=== PATIENT | male | born 1940 | race Caucasian/White ===

== ENCOUNTER 2017-10-25 10:32 | Emergency (ER) | payer OTHER ==
[2017-10-25 10:54] LABS: HEMATOCRIT 40.1 % (42.0-54.0); HEMOGLOBIN 13.6 g/dL (13.5-17.5); LYMPHOCYTES 25.5 % (15-50); MCH 32.2 pg (26.0-34.0); MCHC 33.9 g/dL (31.0-37.0); MCV 94.8 fL (80.0-100.0); MEAN PLATELET VOLUME 10.2 fL (7.4-10.4); NEUTROPHILS 61.2 % (40-80); PLATELET COUNT 68 10x3/uL (130-400); RBC 4.23 10x6/uL (4.20-6.10); RDW 19.8 % (11.5-14.5); WBC 4.1 10x3/uL (4.8-10.8)
[2017-10-25 11:16] LABS: INR 3.2 (0.85-1.17); PROTIME 31.4 SECONDS (11.6-15.0)
[2017-10-25 11:25] LABS: APTT 52.6 SECONDS (22.8-39.4)
[2017-10-25 11:26] LABS: PLATELET ESTIMATE DECREASED
== END 2017-10-25 16:47 | disposition short-term general hospital (02) ==
LOC: D.ER 10:32
PROVIDERS: Emergency Medicine
DX: R04.0 Epistaxis (principal); Z79.01 Long term (current) use of anticoagulants; L98.0 Pyogenic granuloma; I48.91 Unspecified atrial fibrillation; I10 Essential (primary) hypertension; I50.9 Heart failure, unspecified; N40.0 Benign prostatic hyperplasia without lower urinary tract symptoms; K21.9 Gastro-esophageal reflux disease without esophagitis

== ENCOUNTER 2017-11-14 06:58 | Emergency (ER) | payer OTHER ==
[~2017-11-14] VITALS: Ht 170.2 cm; Wt 117.9 kg
[2017-11-14 07:23] LABS: BASOPHILS 1.5 % (0-2); EOSINOPHILS 3.3 % (0-7); HEMATOCRIT 32.3 % (42.0-54.0); HEMOGLOBIN 10.3 g/dL (13.5-17.5); IMMATURE GRANULOCYTES 0.5 % (0-5); LYMPHOCYTES 27.6 % (15-50); MCH 31.9 pg (26.0-34.0); MCHC 31.9 g/dL (31.0-37.0); MEAN PLATELET VOLUME 10.7 fL (7.4-10.4); MONOCYTES 16.5 % (2-11); NEUTROPHILS 50.6 % (40-80); RBC 3.23 10x6/uL (4.20-6.10)
[2017-11-14 07:27] LABS: PLATELET COUNT 102 10x3/uL (130-400)
[2017-11-14 07:36] LABS: INR 2.22 (0.85-1.17)
[2017-11-14 07:45] LABS: ALBUMIN 2.8 g/dL (3.4-5.0); ALKALINE PHOSPHATASE 71 U/L (46-116); ALT (SGPT) 13 U/L (10-68); CALC OSMOLALITY 279 mosm/kg (275-300); CALCIUM 8.7 mg/dL (8.5-10.1); CARBON DIOXIDE 29.5 mmol/L (21.0-32.0); CHLORIDE - SERUM 101 mmol/L (98-107); GLUCOSE 94 mg/dL (74-106); POTASSIUM - SERUM 3.6 mmol/L (3.5-5.1); PROTEIN - SERUM 5.4 g/dL (6.4-8.2); SODIUM 140 mmol/L (136-145); UREA NITROGEN 14 mg/dL (7-18); eGFR NON AFRICAN AMERICAN 77 mL/min (90-120)
[2017-11-14 08:01] LABS: CHOL - HDL RATIO 2.7 ratio (2.3-4.9); CHOLESTEROL, TOTAL 74 mg/dL (0-200); CKMB 1.2 U/L (0.0-3.6); CREATINE KINASE 15 UL (21-232); HDL CHOLESTEROL 27 mg/dL (32-96); LDL CHOLESTEROL 39 mg/dL (0-100); LDL-HDL RATIO 1.4 ratio (1.5-3.5); TRIGLYCERIDE 43 mg/dL (30-200)
[2017-11-14 08:08] LABS: TROPONIN-I 0.102 ng/mL (0.000-0.060)
== END 2017-11-14 11:14 | disposition short-term general hospital (02) ==
LOC: D.ER 06:58
PROVIDERS: Emergency Medicine
DX: I20.0 Unstable angina (principal); R07.9 Chest pain, unspecified; I10 Essential (primary) hypertension; K21.9 Gastro-esophageal reflux disease without esophagitis; I48.91 Unspecified atrial fibrillation; I45.10 Unspecified right bundle-branch block

== ENCOUNTER 2017-11-27 14:40 | Emergency (ER) | payer OTHER ==
[2017-11-27 15:12] LABS: BASOPHILS 1.7 % (0-2); EOSINOPHILS 2.1 % (0-7); HEMATOCRIT 33.4 % (42.0-54.0); HEMOGLOBIN 10.3 g/dL (13.5-17.5); IMMATURE GRANULOCYTES 0.2 % (0-5); LYMPHOCYTES 24.1 % (15-50); MCH 30.5 pg (26.0-34.0); MCHC 30.8 g/dL (31.0-37.0); MCV 98.8 fL (80.0-100.0); MEAN PLATELET VOLUME 10.9 fL (7.4-10.4); MONOCYTES 17.2 % (2-11); NEUTROPHILS 54.7 % (40-80); PLATELET COUNT 136 10x3/uL (130-400); RBC 3.38 10x6/uL (4.20-6.10); RDW 18.7 % (11.5-14.5); WBC 4.2 10x3/uL (4.8-10.8)
[2017-11-27 15:27] LABS: ALBUMIN 3.1 g/dL (3.4-5.0); ALKALINE PHOSPHATASE 71 U/L (46-116); ALT (SGPT) 19 U/L (10-68); BILIRUBIN - TOTAL 1.09 mg/dL (0.2-1.3); CALC OSMOLALITY 274 mosm/kg (275-300); CARBON DIOXIDE 30.6 mmol/L (21.0-32.0); CHLORIDE - SERUM 102 mmol/L (98-107); CREATININE - SERUM 1.1 mg/dL (0.6-1.3); GLUCOSE 109 mg/dL (74-106); POTASSIUM - SERUM 3.9 mmol/L (3.5-5.1); PROTEIN - SERUM 6.5 g/dL (6.4-8.2); SODIUM 137 mmol/L (136-145); UREA NITROGEN 13 mg/dL (7-18); eGFR NON AFRICAN AMERICAN 69 mL/min (90-120)
[2017-11-27 15:33] LABS: INR 2.28 (0.85-1.17); PROTIME 24.5 SECONDS (11.6-15.0)
[2017-11-27 15:41] LABS: CHOL - HDL RATIO 2.2 ratio (2.3-4.9); CHOLESTEROL, TOTAL 90 mg/dL (0-200); CKMB 1.2 U/L (0.0-3.6); CREATINE KINASE 18 UL (21-232); HDL CHOLESTEROL 41 mg/dL (32-96); LDL CHOLESTEROL 42 mg/dL (0-100); TRIGLYCERIDE 39 mg/dL (30-200)
[2017-11-27 15:43] LABS: TROPONIN-I 0.109 ng/mL (0.000-0.060)
[2017-11-27 16:13] LABS: APPEARANCE CLEAR (CLEAR); BILIRUBIN NEGATIVE (NEGATIVE); COLOR YELLOW (YELLOW); GLUCOSE NEGATIVE (NEGATIVE); KETONE NEGATIVE (NEGATIVE); NITRITE NEGATIVE (NEGATIVE); PH 6.5 (5.0-6.0); PROTEIN NEGATIVE (NEGATIVE); UROBILINOGEN NORMAL (NORMAL)
[2017-11-27 16:18] LABS: BACTERIA MODERATE /hpf (NONE SEEN); WHITE CELLS - URINE OCC /hpf (0-5)
== END 2017-11-27 19:42 | disposition short-term general hospital (02) ==
LOC: D.ER 14:40
PROVIDERS: Family Medicine; Nurse Practitioner Family
DX: R07.9 Chest pain, unspecified (principal); I50.9 Heart failure, unspecified; R79.89 Other specified abnormal findings of blood chemistry; I48.91 Unspecified atrial fibrillation; K21.9 Gastro-esophageal reflux disease without esophagitis; I45.10 Unspecified right bundle-branch block

== ENCOUNTER 2018-01-03 05:19 | Emergency (ER) | payer OTHER ==
[2018-01-03 05:45] LABS: BASOPHILS 0.4 % (0-2); EOSINOPHILS 1.8 % (0-7); HEMATOCRIT 34.2 % (42.0-54.0); HEMOGLOBIN 10.8 g/dL (13.5-17.5); IMMATURE GRANULOCYTES 0.4 % (0-5); LYMPHOCYTES 11.3 % (15-50); MCH 29.8 pg (26.0-34.0); MCHC 31.6 g/dL (31.0-37.0); MCV 94.2 fL (80.0-100.0); MEAN PLATELET VOLUME 11.1 fL (7.4-10.4); MONOCYTES 1.2 % (2-11); NEUTROPHILS 84.9 % (40-80); PLATELET COUNT 119 10x3/uL (130-400); RBC 3.63 10x6/uL (4.20-6.10); RDW 17.6 % (11.5-14.5); WBC 5.7 10x3/uL (4.8-10.8)
[2018-01-03 05:53] LABS: INR 3.65 (0.85-1.17); PROTIME 35.5 SECONDS (11.6-15.0)
[2018-01-03 05:58] LABS: ALBUMIN 3.5 g/dL (3.4-5.0); ANION GAP 12.5 mmol/L (8-16); BILIRUBIN - TOTAL 1.91 mg/dL (0.2-1.3); CALCIUM 9.1 mg/dL (8.5-10.1); CARBON DIOXIDE 29.9 mmol/L (21.0-32.0); CREATININE - SERUM 1.1 mg/dL (0.6-1.3); POTASSIUM - SERUM 3.4 mmol/L (3.5-5.1); PROTEIN - SERUM 7.5 g/dL (6.4-8.2)
[2018-01-03 06:20] LABS: TROPONIN-I 0.096 ng/mL (0.000-0.060)
== END 2018-01-03 10:21 | disposition short-term general hospital (02) ==
LOC: D.ER 05:19
PROVIDERS: Family Medicine
DX: I48.2 Chronic atrial fibrillation (principal); K85.90 Acute pancreatitis without necrosis or infection, unspecified; R79.89 Other specified abnormal findings of blood chemistry; K21.9 Gastro-esophageal reflux disease without esophagitis; I10 Essential (primary) hypertension; I45.10 Unspecified right bundle-branch block; Z79.01 Long term (current) use of anticoagulants

== ENCOUNTER 2018-03-24 17:54 | Emergency (ER) | payer OTHER ==
[~2018-03-24] VITALS: Ht 170.2 cm; Wt 109.1 kg
[2018-03-24 17:56] VITALS: Ht 170.2 cm; Wt 109.1 kg
[2018-03-24] MEDS ORDERED: ARTIFICIAL TEAR15 ML EACH EYE (18:00)
[2018-03-24] MEDS ORDERED: LIPITOR80 MG PO (18:00)
[2018-03-24] MEDS ORDERED: BAYER CHEWABLE81 MG PO (18:00)
[2018-03-24] MEDS ORDERED: BUMEX2 MG PO (18:01)
[2018-03-24] MEDS ORDERED: BACITRACIN3.5 GM EACH EYE (18:01)
[2018-03-24] MEDS ORDERED: CALCIUM 500 + D1 TAB PO (18:02)
[2018-03-24] MEDS ORDERED: STOOL SOFTENER240 MG PO (18:02)
[2018-03-24] MEDS ORDERED: PROPECIA1 MG PO (18:02)
[2018-03-24] MEDS ORDERED: LACTINEX C1 TAB.CHEW PO (18:02)
[2018-03-24] MEDS ORDERED: FOLATE0.4 MG PO (18:03)
[2018-03-24] MEDS ORDERED: LISINOPRIL2.5 MG PO (18:03)
[2018-03-24] MEDS ORDERED: ISOSORBIDE MONO60 M1 PO (18:03)
[2018-03-24] MEDS ORDERED: TOPROL XL200 MG PO (18:04)
[2018-03-24] MEDS ORDERED: K-DUR20 MEQ PO (18:04)
[2018-03-24] MEDS ORDERED: PROTONIX40 MG PO (18:04)
[2018-03-24] MEDS ORDERED: FLOMAX0.4 MG PO (18:05)
[2018-03-24] MEDS ORDERED: VITAMIN B-121000 MCG PO (18:05)
[2018-03-24] MEDS ORDERED: ALDACTONE25 MG PO (18:05)
[2018-03-24] MEDS ORDERED: VITAMIN C WIT1000 MG PO (18:05)
[2018-03-24] MEDS ORDERED: TRAMADOL HCL E100 M1 PO (18:06)
[2018-03-24 18:30] LABS: BASOPHILS 1.5 % (0-2); EOSINOPHILS 2.6 % (0-7); HEMATOCRIT 21.8 % (42.0-54.0); LYMPHOCYTES 22.1 % (15-50); MCH 25.2 pg (26.0-34.0); MCHC 30.3 g/dL (31.0-37.0); MCV 83.2 fL (80.0-100.0); MEAN PLATELET VOLUME 10.2 fL (7.4-10.4); MONOCYTES 14.6 % (2-11); NEUTROPHILS 59.2 % (40-80); PLATELET COUNT 138 10x3/uL (130-400); RBC 2.62 10x6/uL (4.20-6.10); RDW 18.9 % (11.5-14.5); WBC 3.9 10x3/uL (4.8-10.8)
[2018-03-24 18:36] LABS: HEMOGLOBIN 6.6 g/dL (13.5-17.5)
[2018-03-24 18:41] LABS: INR 4.08 (0.85-1.17); PROTIME 38.7 SECONDS (11.6-15.0)
[2018-03-24 18:48] LABS: ALBUMIN 3.1 g/dL (3.4-5.0); ANION GAP 11.9 mmol/L (8-16); BILIRUBIN - TOTAL 1.04 mg/dL (0.2-1.3); CALCIUM 9.3 mg/dL (8.5-10.1); CARBON DIOXIDE 29.5 mmol/L (21.0-32.0); CREATININE - SERUM 1.6 mg/dL (0.6-1.3); POTASSIUM - SERUM 4.4 mmol/L (3.5-5.1); PROTEIN - SERUM 6.5 g/dL (6.4-8.2)
[2018-03-24 19:20] LABS: APTT 58.3 SECONDS (22.8-39.4)
[2018-03-24 22:30] VITALS: BP 90/55
== END 2018-03-25 00:53 | disposition short-term general hospital (02) ==
LOC: D.ER 17:54
PROVIDERS: Family Medicine
DX: I48.91 Unspecified atrial fibrillation (principal); D64.9 Anemia, unspecified; R53.1 Weakness; E87.1 Hypo-osmolality and hyponatremia; I45.10 Unspecified right bundle-branch block

== ENCOUNTER 2018-04-19 04:43 | Emergency (ER) | payer OTHER ==
[~2018-04-19] VITALS: Ht 170.2 cm; Wt 68.6 kg
[~2018-04-19 04:43] MED LIST: ALDACTONE25 MG PO; ARTIFICIAL TEAR15 ML EACH EYE; BACITRACIN3.5 GM EACH EYE; BAYER CHEWABLE81 MG PO; BUMEX2 MG PO; CALCIUM 500 + D1 TAB PO; FLOMAX0.4 MG PO; FOLATE0.4 MG PO; ISOSORBIDE MONO60 M1 PO; K-DUR20 MEQ PO; LACTINEX C1 TAB.CHEW PO; LIPITOR80 MG PO; LISINOPRIL2.5 MG PO; PROPECIA1 MG PO; PROTONIX40 MG PO; STOOL SOFTENER240 MG PO; TOPROL XL200 MG PO; TRAMADOL HCL E100 M1 PO; VITAMIN B-121000 MCG PO; VITAMIN C WIT1000 MG PO
[2018-04-19 04:46] VITALS: Ht 170.2 cm; Wt 68.6 kg
[2018-04-19 05:13] LABS: BASOPHILS 1.1 % (0-2); EOSINOPHILS 1.6 % (0-7); HEMATOCRIT 28.1 % (42.0-54.0); HEMOGLOBIN 8.5 g/dL (13.5-17.5); LYMPHOCYTES 20.3 % (15-50); MCH 26.6 pg (26.0-34.0); MCHC 30.2 g/dL (31.0-37.0); MCV 87.8 fL (80.0-100.0); MEAN PLATELET VOLUME 12.3 fL (7.4-10.4); MONOCYTES 9.5 % (2-11); NEUTROPHILS 67.5 % (40-80); PLATELET COUNT 130 10x3/uL (130-400); RDW 22.5 % (11.5-14.5); WBC 4.4 10x3/uL (4.8-10.8)
[2018-04-19 05:24] LABS: INR 3.51 (0.85-1.17); PROTIME 34.4 SECONDS (11.6-15.0)
[2018-04-19 05:25] LABS: D-DIMER-QUANTITATIVE 1.27 ug/mLFEU (0.20-0.54)
[2018-04-19 05:27] LABS: ALBUMIN 2.9 g/dL (3.4-5.0); ALKALINE PHOSPHATASE 72 U/L (46-116); ALT (SGPT) 15 U/L (10-68); BILIRUBIN - TOTAL 1.21 mg/dL (0.2-1.3); CALC OSMOLALITY 273 mosm/kg (275-300); CALCIUM 9.1 mg/dL (8.5-10.1); CHLORIDE - SERUM 99 mmol/L (98-107); CREATININE - SERUM 1.5 mg/dL (0.6-1.3); GLUCOSE 137 mg/dL (74-106); POTASSIUM - SERUM 3.8 mmol/L (3.5-5.1); PROTEIN - SERUM 6.1 g/dL (6.4-8.2); SODIUM 134 mmol/L (136-145); UREA NITROGEN 23 mg/dL (7-18); eGFR NON AFRICAN AMERICAN 48 mL/min (90-120)
[2018-04-19 05:38] LABS: APPEARANCE CLEAR (CLEAR); BILIRUBIN NEGATIVE (NEGATIVE); COLOR YELLOW (YELLOW); GLUCOSE NEGATIVE (NEGATIVE); KETONE NEGATIVE (NEGATIVE); NITRITE NEGATIVE (NEGATIVE); PROTEIN 2+ mg/dL (NEGATIVE); SPECIFIC GRAVITY 1.015 (1.005-1.020); UROBILINOGEN NORMAL (NORMAL)
[2018-04-19 05:39] LABS: BACTERIA FEW /hpf (NONE SEEN); EPITHELIAL CELLS 0-5 /hpf (0-5); RED CELLS - URINE 0-5 /hpf (0-5); WHITE CELLS - URINE 0-5 /hpf (0-5)
[2018-04-19 05:43] LABS: CKMB 1.2 U/L (0.0-3.6); CREATINE KINASE 24 UL (21-232); MAGNESIUM - SERUM 1.8 mg/dL (1.8-2.4); PRO BNP 1167 pg/mL (0-450)
[2018-04-19] MEDS ORDERED: COUMADIN2.5 MG PO (05:43)
[2018-04-19 05:44] LABS: TROPONIN-I 0.094 ng/mL (0.000-0.060)
[2018-04-19] MEDS ORDERED: COUMADIN5 MG (05:44)
[2018-04-19] MEDS ORDERED: VITAMIN D5000 UNIT PO (05:44)
[2018-04-19] MEDS ORDERED: ACETAMINOPHEN325 MG PO (05:45)
[2018-04-19] MEDS ORDERED: HYDROCODON-ACE1 EAC7 PO (05:46)
[2018-04-19] MEDS ORDERED: IPRAT-ALBUT 0.5-3 ML UPD (05:47)
[2018-04-19] MEDS ORDERED: NITROSTAT0.4 MG SL (05:48)
[2018-04-19] MEDS ORDERED: MEPHYTON5 MG PO (05:48)
[2018-04-19] MEDS ORDERED: FERROUS SULFAT325 MG PO (05:49)
[2018-04-19 10:33] VITALS: BP 96/45
== END 2018-04-19 10:45 ==
LOC: D.ER 04:43
PROVIDERS: Family Medicine
DX: R55 Syncope and collapse (principal); Z86.79 Personal history of other diseases of the circulatory system